=== PATIENT | female | born 1945 | race Caucasian/White ===

== ENCOUNTER → 2016-06-14 | Outpatient (CLI) | payer MEDICARE | LOC: MC.RAD 13:00 | DX: Z12.31 Encounter for screening mammogram for malignant neoplasm of breast (principal) ==

== ENCOUNTER → 2018-02-06 | Outpatient (CLI) | payer MEDICARE | LOC: MC.RAD 07:57 | DX: Z12.31 Encounter for screening mammogram for malignant neoplasm of breast (principal) ==

== ENCOUNTER → 2019-05-01 | Outpatient (CLI) | payer MEDICARE | LOC: MC.RAD 07:23 | DX: N63.12 Unspecified lump in the right breast, upper inner quadrant (principal) | CPT/HCPCS: G0279 ==

== ENCOUNTER → 2019-05-07 | Outpatient (CLI) | payer MEDICARE | LOC: MC.RAD 08:57 | DX: D05.11 Intraductal carcinoma in situ of right breast (principal); N63.12 Unspecified lump in the right breast, upper inner quadrant ==

== ENCOUNTER 2021-08-01 07:21 | Day surgery (SDC) | payer MEDICARE ==
[2021-08-01] VITALS (7 sets, daily range): BP systolic 138–184; BP diastolic 53–103; PULSE 60–76; TEMP 97.2–97.9
[~2021-08-01] VITALS: Ht 160 cm; Wt 69.4 kg
[2021-08-01] MEDS ORDERED: SYNTHROID0.05 MG/TA PO (08:00)
[2021-08-01] MEDS ORDERED: ARIMIDEX1 MG PO (08:01)
[2021-08-01] MEDS ORDERED: LIPITOR 40MG TA40 MG PO (08:01)
[2021-08-01] MEDS ORDERED: SYNTHROID0.075 MG/T PO (08:01)
[2021-08-01] MEDS ORDERED: COZAAR100 MG PO (08:02)
[2021-08-01] MEDS ORDERED: ASPIRIN 81M81 MG/TA2 PO (08:02)
[2021-08-01] MEDS ORDERED: FOSAMAX 70MG TA70 MG PO (08:03)
[2021-08-01] MEDS ORDERED: CENTRUM CHEWAB1 EAC4 PO (08:03)
[2021-08-01] MEDS ORDERED: MASON NATURAL1200 MG PO (08:03)
[2021-08-01] MEDS ORDERED: VITAMIN C500 MG PO (08:04)
[2021-08-01] MEDS ORDERED: VITAMIN D 400400 IU PO (08:04)
[2021-08-01] MEDS ORDERED: TURMERIC500 MG PO (08:05)
[2021-08-01] MEDS ORDERED: ZYRTEC 10MG10 MG PO (08:05)
[2021-08-01] MEDS ORDERED: PHARMASSURE ZIN50 MG PO (08:06)
--- NOTE | 2021-08-01 09:49 | NUR ---
0900 - PT arrived from procedure drowsy but oriented. PT assisted from cart to chair by Ashley KELLY and Joyce KELLY. Monitors applied and vitals obatined. BP is elevated. Warm blankets applied. Warm muffin, coke and water provided per PT request. PT denies nausea. NO vomiting. PT oriented to room and call estrada, within reach. 15 - is speaking with PT. VSS. PT has finished her muffin and continues to deny nausea. Will montior per intervals. 30 - VSS. PT expressed desire to be discharged. DC instructions and educational material reviewed with the PT, who verbalized understanding and signed the related paperwork. Questions answered. IV discontinued. Catheter tip intact. Pressure bandage applied. NO redness or swelling noted. PT denied needing assistance changing into personal clothes. Visitors left to pull up car. Call estrada remains within reach. 0950 - PT used call estrada to let RN know she is ready to go downstairs.
--- NOTE | 2021-08-01 09:58 | NUR ---
PT dismissed from endo via wheelchair to the PT entrence by Joyce KELLY. PT has DC packet and personal belongings in hand, and was tranferred into the care of her son who is driving private car.
--- NOTE | 2021-08-01 10:19 | NUR ---
0925 - PT arrived from procedure and was settled by LETICIA Mcclendon. Verbal room report then obtained. Monitors applied and VSS. PT denies nausea. NO vomting. PT was served buttered toast with jam and ice water per request. Warm blankets applied. PT oriented to room and call estrada, within reach. Will monitor per intervals. 0940 - VSS. is speaking with PT. 0955 - VSS. DC instructions and educational material reviewed with the PT who verbalized understanding and signed the related paperwork. IV discontinued. Catheter tip intact. PRessure bandage applied. NO redness or swelling noted. PT denied needing assistance changing into persoanl clothes. Call estrada remains within reach if needed. 1020 - PT used call estrada to let RN know she is done changing. 1025- PT dismissed from endo via wheelchair to the PT entrence by Joyce KELLY and was transferred into the care of her Garry who is driving private car. PT has DC packet in hand and her personal belongings.
== END 2021-08-01 10:25 | disposition home or self-care (01) ==
LOC: SDCO 07:21
DX: Z12.11 Encounter for screening for malignant neoplasm of colon (principal); K64.0 First degree hemorrhoids; K57.30 Diverticulosis of large intestine without perforation or abscess without bleeding; Z86.010 Personal history of colon polyps
CPT/HCPCS: G0105; J2704; J7030